=== PATIENT | female | born 1935 | race Caucasian/White ===

== ENCOUNTER 2017-05-13 14:31 | Inpatient (IN) | payer MEDICARE, MEDICAID ==
[~2017-05-13] VITALS: Ht 162.6 cm; Wt 53.6 kg
[~2017-05-13 14:31] MED LIST: ACET-1757 PO; ASPI-152; ASPI-496 PO; ATEN-104; ATOR20TA9 PO; BISA10SU54 PR; CARV12.543 PO; CARV6.2512 PO; CEFD300C37 PO; CHOL200040 PO; CITA20TA9 PO; DOCU-131 PO; DOCU240C53; FERR-46 PO; FERR325C PO; FURO-92 PO; GLIP5POW; HYDR-757; INSU100V SQ; LACT1CAP35 PO; LACT1CAP4 PO; LISI-167 PO; LISI-170 PO; MAGN400O7 PO; METF-162; MULT-658; MULT1CAP19 PO; PANT40TA3 PO; POLY17PO5 PO; POTA20TA14 PO; SUCR1TAB33 PO; SULF-169 PO
[2017-05-13] MEDS ORDERED: CARV3.1212 PO (14:54)
[2017-05-13] MEDS ORDERED: CHOL200040 PO (14:54)
[2017-05-13] MEDS ORDERED: GENT40VI IM (14:54)
[2017-05-13] MEDS ORDERED: SENN-31 PO (14:54)
[2017-05-13] MEDS ORDERED: MULT1TAB60 PO (14:54)
[2017-05-13] MEDS ORDERED: CITA10TA4 PO (14:54)
[2017-05-13] MEDS ORDERED: ATOR40TA PO (14:54)
[2017-05-13] MEDS ORDERED: TRAM50TA2 PO (14:54)
[2017-05-13] MEDS ORDERED: OMEP-110 PO (14:54)
[2017-05-13] MEDS ORDERED: PIPERACILLIN/TAZO/PMX 3.375GM 50 ML IVPB ONE (15:00)
[2017-05-13] MEDS ORDERED: SODIUM CHLORIDE 0.9% 1,000 ML IV ONE (15:00)
[2017-05-13] MEDS ORDERED: SODIUM CHLORIDE FLUSH 10ML SYR IVF ONE (15:00)
[2017-05-13 15:41] LABS: HEMATOCRIT 31.5 % (34.6-47.8); HEMOGLOBIN 10.4 g/dL (11.7-16.4); WHITE BLOOD COUNT 15.2 x10^3/uL (3.4-10)
[2017-05-13] MEDS ORDERED: PIPERACILLIN/TAZO/PMX 3.375GM 50 ML ONE (15:43)
[2017-05-13 15:45] LABS: ASPARTATE AMINO TRANSFERASE 14 U/L (15-37)
[2017-05-13] MEDS ORDERED: PLEASE ENTER HEIGHT AND WEIGHT MC SCH (16:00)
[2017-05-13] MEDS ORDERED: AZITHROMYCIN 500 MG in SODIUM CHLORIDE 0.9% 250 ML IVPB ONE (16:00)
[2017-05-13 16:03] LABS: BLOOD UREA NITROGEN 137 mg/dL (7-18)
[2017-05-13] MEDS ORDERED: DEXTROSE 50%, 50ML SYRINGE ONE (16:27)
[2017-05-13] MEDS ORDERED: CALCIUM CHLORIDE 10%, 10ML SYR ONE (16:27)
[2017-05-13] MEDS ORDERED: INSULIN REGULAR 100 UNITS/ML, 3ML VIAL ONE (16:28)
[2017-05-13] MEDS ORDERED: INSULIN REGULAR 100 UNITS/ML, 3ML VIAL IVPush ONE (16:30)
[2017-05-13] MEDS ORDERED: CALCIUM CHLORIDE 10%, 10ML SYR IVPush ONE (16:30)
[2017-05-13] MEDS ORDERED: SODIUM CHLORIDE FLUSH 10ML SYR IVF PRN (16:30)
[2017-05-13] MEDS ORDERED: DEXTROSE 50%, 50ML SYRINGE IVPush ONE (16:30)
[2017-05-13] MEDS ORDERED: SODIUM BICARBONATE 1 MEQ/ML, 50ML VIAL IVPush ONE (17:00)
[2017-05-13] MEDS ORDERED: SODIUM POLYSTYRENE SULFONATE ORAL SUSP PO ONE (17:00)
[2017-05-13] MEDS ORDERED: PHARMACY MAY ADJ FOR RENAL FX MC PRN (17:00)
[2017-05-13 17:10] LABS: PTH INTACT INTERPRETATION ** Comment **
[2017-05-13] MEDS ORDERED: ONDANSETRON 2MG/ML, 2ML IVPush PRN (17:30)
[2017-05-13] MEDS ORDERED: ONDANSETRON ODT 4 MG PO PRN (17:30)
[2017-05-13] MEDS: SODIUM BICARB 8.4%,50ML SYR. 150 MEQ in DEXTROSE 5% 1,000 ML IV SCH (17:49)
[2017-05-13 19:15] LABS: FERRITIN 673.7 ng/mL (8-252); TOTAL IRON BINDING CAPACITY 206 mcg/dL (250-450)
[2017-05-13 19:19] LABS: BLOOD UREA NITROGEN 134 mg/dL (7-18)
[2017-05-13 20:00] VITALS: BP 118/74
[2017-05-13] MEDS ORDERED: ATORVASTATIN 40 MG TABLET PO SCH (21:00)
[2017-05-13] MEDS: SENNA/DOCUSATE TABLET PO SCH (21:58)
[2017-05-13] MEDS: MEROPENEM 1 GM in SODIUM CHLORIDE 0.9% 100 ML IV SCH (22:07)
[2017-05-13] MEDS: HEPARIN 5,000 UNITS/ML, 1ML SQ SCH (22:07)
[2017-05-13] MEDS: CARVEDILOL 3.125 MG TABLET PO SCH (22:08)
[2017-05-13] MEDS: ATORVASTATIN 20 MG TABLET PO SCH (22:48)
[2017-05-14 04:20] VITALS: BP 147/71
[2017-05-14 05:34] LABS: HEMATOCRIT 29.5 % (34.6-47.8); HEMOGLOBIN 9.6 g/dL (11.7-16.4); WHITE BLOOD COUNT 9.9 x10^3/uL (3.4-10)
[2017-05-14] MEDS: HEPARIN 5,000 UNITS/ML, 1ML SQ SCH ×3 (05:45→23:43)
[2017-05-14] MEDS: SODIUM BICARB 8.4%,50ML SYR. 150 MEQ in DEXTROSE 5% 1,000 ML IV SCH (05:45)
[2017-05-14] MEDS: MEROPENEM 1 GM in SODIUM CHLORIDE 0.9% 100 ML IV SCH (05:45)
[2017-05-14 06:13] LABS: ASPARTATE AMINO TRANSFERASE 13 U/L (15-37)
[2017-05-14 06:18] LABS: BLOOD UREA NITROGEN 129 mg/dL (7-18)
[2017-05-14 08:02] VITALS: BP 155/71
[2017-05-14] MEDS: CITALOPRAM 10 MG TABLET PO SCH (09:00)
[2017-05-14] MEDS: CHOLECALCIFEROL 1,000 UNIT TABLET PO SCH ×2 (09:00→09:19)
[2017-05-14] MEDS: OMEPRAZOLE 20 MG CAPSULE.DR PO SCH ×2 (09:00→09:18)
[2017-05-14] MEDS: MULTIVITAMIN 1 TABLET PO SCH ×2 (09:00→09:19)
[2017-05-14] MEDS: CARVEDILOL 3.125 MG TABLET PO SCH ×3 (09:00→20:44)
[2017-05-14 13:22] VITALS: BP 146/57
[2017-05-14 15:31] LABS: HEP B SURF. AB 822.3 mIU/mL (0.0-10.0)
[2017-05-14] MEDS ORDERED: SODIUM BICARB 8.4%,50ML SYR. 150 MEQ in DEXTROSE 5% 1,000 ML IV SCH (17:30)
[2017-05-14 20:00] VITALS: BP 101/56
[2017-05-14] MEDS: ATORVASTATIN 20 MG TABLET PO SCH (20:44)
[2017-05-14] MEDS: SENNA/DOCUSATE TABLET PO SCH (20:45)
[2017-05-15 02:00] VITALS: BP 152/81
[2017-05-15 05:29] LABS: HEMATOCRIT 26.8 % (34.6-47.8); HEMOGLOBIN 9.1 g/dL (11.7-16.4); WHITE BLOOD COUNT 8.5 x10^3/uL (3.4-10)
[2017-05-15 05:37] LABS: BLOOD UREA NITROGEN 61 mg/dL (7-18)
[2017-05-15 05:40] LABS: ASPARTATE AMINO TRANSFERASE 16 U/L (15-37)
[2017-05-15] MEDS ORDERED: MEROPENEM 0.5 GM in SODIUM CHLORIDE 0.9% 100 ML IV SCH (06:00)
[2017-05-15 07:03] VITALS: BP 147/73
[2017-05-15] MEDS: HEPARIN 5,000 UNITS/ML, 1ML SQ SCH ×3 (07:21→23:50)
[2017-05-15] MEDS: OMEPRAZOLE 20 MG CAPSULE.DR PO SCH (08:08)
[2017-05-15] MEDS: MULTIVITAMIN 1 TABLET PO SCH (08:08)
[2017-05-15] MEDS: CARVEDILOL 3.125 MG TABLET PO SCH ×2 (08:08→20:09)
[2017-05-15] MEDS: CHOLECALCIFEROL 1,000 UNIT TABLET PO SCH (08:08)
[2017-05-15] MEDS: CITALOPRAM 10 MG TABLET PO SCH (08:08)
[2017-05-15 13:31] LABS: POTASSIUM,URINE RANDOM 19 mmol/L
[2017-05-15 13:58] VITALS: BP 130/73
[2017-05-15 20:00] VITALS: BP 153/75
[2017-05-15] MEDS: SENNA/DOCUSATE TABLET PO SCH (20:09)
[2017-05-15] MEDS: ATORVASTATIN 20 MG TABLET PO SCH (20:09)
[2017-05-16 02:00] VITALS: BP 119/76
[2017-05-16 05:15] LABS: HEMATOCRIT 26.8 % (34.6-47.8); HEMOGLOBIN 8.9 g/dL (11.7-16.4); WHITE BLOOD COUNT 9.2 x10^3/uL (3.4-10)
[2017-05-16] MEDS: MEROPENEM 500 MG in SODIUM CHLORIDE 0.9% 100 ML IV SCH (05:23)
[2017-05-16 05:33] LABS: ASPARTATE AMINO TRANSFERASE 25 U/L (15-37); BLOOD UREA NITROGEN 30 mg/dL (7-18)
[2017-05-16 09:00] VITALS: BP 122/55
[2017-05-16] MEDS: CARVEDILOL 3.125 MG TABLET PO SCH ×2 (09:00→21:26)
[2017-05-16] MEDS: CHOLECALCIFEROL 1,000 UNIT TABLET PO SCH (12:07)
[2017-05-16] MEDS: HEPARIN 5,000 UNITS/ML, 1ML SQ SCH ×2 (12:07→18:05)
[2017-05-16] MEDS: MULTIVITAMIN 1 TABLET PO SCH (12:07)
[2017-05-16] MEDS: OMEPRAZOLE 20 MG CAPSULE.DR PO SCH (12:07)
[2017-05-16] MEDS: CITALOPRAM 10 MG TABLET PO SCH (12:07)
[2017-05-16 12:15] VITALS: BP 154/78
[2017-05-16 17:13] LABS: BLOOD UREA NITROGEN 12 mg/dL (7-18)
[2017-05-16 21:03] VITALS: BP 153/77
[2017-05-16] MEDS: SENNA/DOCUSATE TABLET PO SCH (21:26)
[2017-05-16] MEDS: ATORVASTATIN 20 MG TABLET PO SCH (21:26)
[2017-05-17] MEDS: HEPARIN 5,000 UNITS/ML, 1ML SQ SCH ×3 (01:41→20:48)
[2017-05-17 02:43] VITALS: BP 140/67
[2017-05-17 05:20] LABS: HEMATOCRIT 25.1 % (34.6-47.8); HEMOGLOBIN 8.3 g/dL (11.7-16.4); WHITE BLOOD COUNT 8.8 x10^3/uL (3.4-10)
[2017-05-17] MEDS: MEROPENEM 500 MG in SODIUM CHLORIDE 0.9% 100 ML IV SCH (05:29)
[2017-05-17 05:40] LABS: BLOOD UREA NITROGEN 19 mg/dL (7-18)
[2017-05-17 06:40] VITALS: BP 155/78
[2017-05-17] MEDS: OMEPRAZOLE 20 MG CAPSULE.DR PO SCH (09:00)
[2017-05-17] MEDS: MULTIVITAMIN 1 TABLET PO SCH (09:00)
[2017-05-17] MEDS: CHOLECALCIFEROL 1,000 UNIT TABLET PO SCH (09:00)
[2017-05-17] MEDS: CARVEDILOL 3.125 MG TABLET PO SCH ×2 (09:00→20:48)
[2017-05-17] MEDS: CITALOPRAM 10 MG TABLET PO SCH (09:00)
[2017-05-17] MEDS ORDERED: POTASSIUM CHLORIDE PMX 100 ML IV ONE (11:00)
[2017-05-17] MEDS ORDERED: ONDANSETRON 2MG/ML, 2ML ONE (12:56)
[2017-05-17] MEDS ORDERED: FENTANYL PF 100 MCG/2ML ONE ×2 (12:56)
[2017-05-17] MEDS ORDERED: LIDOCAINE 1%, 20ML ONE (13:32)
[2017-05-17 14:00] VITALS: BP 138/69
[2017-05-17] MEDS: SENNA/DOCUSATE TABLET PO SCH (20:48)
[2017-05-17] MEDS: ATORVASTATIN 20 MG TABLET PO SCH (20:48)
[2017-05-17 22:14] VITALS: BP 185/74
[2017-05-18 00:26] VITALS: BP 165/79
[2017-05-18 05:13] LABS: BLOOD UREA NITROGEN 29 mg/dL (7-18)
[2017-05-18 05:18] LABS: HEMATOCRIT 27.7 % (34.6-47.8); WHITE BLOOD COUNT 10.3 x10^3/uL (3.4-10)
[2017-05-18] MEDS: MEROPENEM 500 MG in SODIUM CHLORIDE 0.9% 100 ML IV SCH (05:52)
[2017-05-18] MEDS: HEPARIN 5,000 UNITS/ML, 1ML SQ SCH ×3 (05:52→23:02)
[2017-05-18 08:28] VITALS: BP 186/96
[2017-05-18] MEDS: MULTIVITAMIN 1 TABLET PO SCH ×2 (09:00→12:33)
[2017-05-18] MEDS: CARVEDILOL 3.125 MG TABLET PO SCH ×2 (12:33→23:05)
[2017-05-18] MEDS: OMEPRAZOLE 20 MG CAPSULE.DR PO SCH (12:33)
[2017-05-18] MEDS: CITALOPRAM 10 MG TABLET PO SCH (12:33)
[2017-05-18] MEDS: CHOLECALCIFEROL 1,000 UNIT TABLET PO SCH (12:34)
[2017-05-18 13:06] VITALS: BP 183/79
[2017-05-18] MEDS ORDERED: ACETAMINOPHEN 325 MG TABLET PO PRN (15:00)
[2017-05-18 21:25] VITALS: BP 194/84
[2017-05-18] MEDS: SENNA/DOCUSATE TABLET PO SCH (23:02)
[2017-05-18] MEDS: ATORVASTATIN 20 MG TABLET PO SCH (23:02)
[2017-05-19 03:44] VITALS: BP 179/78
[2017-05-19] MEDS: MEROPENEM 500 MG in SODIUM CHLORIDE 0.9% 100 ML IV SCH (06:03)
[2017-05-19] MEDS: HEPARIN 5,000 UNITS/ML, 1ML SQ SCH (06:06)
[2017-05-19 07:02] LABS: BLOOD UREA NITROGEN 32 mg/dL (7-18)
[2017-05-19 07:52] VITALS: BP 158/71
[2017-05-19] MEDS: CHOLECALCIFEROL 1,000 UNIT TABLET PO SCH (09:00)
[2017-05-19] MEDS ORDERED: ENOXAPARIN 60 MG/0.6 ML SQ SCH (09:00)
[2017-05-19] MEDS: CITALOPRAM 10 MG TABLET PO SCH (10:27)
[2017-05-19] MEDS: MULTIVITAMIN 1 TABLET PO SCH (10:27)
[2017-05-19] MEDS: OMEPRAZOLE 20 MG CAPSULE.DR PO SCH (10:27)
[2017-05-19] MEDS: CARVEDILOL 3.125 MG TABLET PO SCH ×2 (10:27→22:11)
[2017-05-19] MEDS: POTASSIUM CHLORIDE 20 MEQ PACKET PO SCH ×2 (10:30→17:00)
[2017-05-19] MEDS ORDERED: MAGNESIUM SULFATE PMX 2GM/50ML 50 ML IV ONE (10:30)
[2017-05-19 13:34] VITALS: BP 137/76
[2017-05-19] MEDS ORDERED: ACETAMINOPHEN 325 MG TABLET PO PRN (19:30)
[2017-05-19] MEDS ORDERED: ONDANSETRON ODT 4 MG PO PRN ×2 (19:30→21:00)
[2017-05-19] MEDS ORDERED: PHARMACY MAY ADJ FOR RENAL FX MC PRN ×2 (19:30→21:00)
[2017-05-19] MEDS ORDERED: ONDANSETRON 2MG/ML, 2ML IVPush PRN ×2 (19:30→21:00)
[2017-05-19 20:00] VITALS: BP 152/75
[2017-05-19] MEDS: SENNA/DOCUSATE TABLET PO SCH (22:11)
[2017-05-19] MEDS: ATORVASTATIN 20 MG TABLET PO SCH (22:11)
[2017-05-19] MEDS: APIXABAN 2.5 MG TABLET PO SCH (22:11)
[2017-05-20 02:00] VITALS: BP 156/80
[2017-05-20] MEDS: MEROPENEM 500 MG in SODIUM CHLORIDE 0.9% 100 ML IV SCH (05:35)
[2017-05-20 05:45] LABS: BLOOD UREA NITROGEN 31 mg/dL (7-18)
[2017-05-20 08:42] VITALS: BP 177/77
[2017-05-20] MEDS: MULTIVITAMIN 1 TABLET PO SCH (09:17)
[2017-05-20] MEDS: CARVEDILOL 3.125 MG TABLET PO SCH ×2 (09:18→20:55)
[2017-05-20] MEDS: APIXABAN 2.5 MG TABLET PO SCH ×2 (09:18→20:56)
[2017-05-20] MEDS: CHOLECALCIFEROL 1,000 UNIT TABLET PO SCH (09:18)
[2017-05-20] MEDS: OMEPRAZOLE 20 MG CAPSULE.DR PO SCH (09:19)
[2017-05-20] MEDS: CITALOPRAM 10 MG TABLET PO SCH (09:19)
[2017-05-20] MEDS: POTASSIUM CHLORIDE 20 MEQ PACKET PO SCH ×2 (09:19→17:34)
[2017-05-20 15:29] VITALS: BP 153/82
[2017-05-20 20:00] VITALS: BP 123/55
[2017-05-20] MEDS: SENNA/DOCUSATE TABLET PO SCH (20:56)
[2017-05-20] MEDS: ATORVASTATIN 20 MG TABLET PO SCH (20:56)
[2017-05-21] MEDS: ACETAMINOPHEN 325 MG TABLET PO PRN (00:26)
[2017-05-21 02:00] VITALS: BP 155/75
[2017-05-21 05:14] LABS: BLOOD UREA NITROGEN 31 mg/dL (7-18); HEMATOCRIT 23.1 % (34.6-47.8); HEMOGLOBIN 7.7 g/dL (11.7-16.4)
[2017-05-21 05:19] LABS: ASPARTATE AMINO TRANSFERASE 10 U/L (15-37)
[2017-05-21] MEDS: MEROPENEM 500 MG in SODIUM CHLORIDE 0.9% 100 ML IV SCH (06:14)
[2017-05-21 06:35] VITALS: BP 137/72
[2017-05-21] MEDS: CITALOPRAM 10 MG TABLET PO SCH (09:14)
[2017-05-21] MEDS: POTASSIUM CHLORIDE 20 MEQ PACKET PO SCH ×2 (09:14→20:39)
[2017-05-21] MEDS: APIXABAN 2.5 MG TABLET PO SCH ×2 (09:15→20:39)
[2017-05-21] MEDS: OMEPRAZOLE 20 MG CAPSULE.DR PO SCH (09:15)
[2017-05-21] MEDS: CARVEDILOL 3.125 MG TABLET PO SCH ×2 (09:15→20:39)
[2017-05-21] MEDS: CHOLECALCIFEROL 1,000 UNIT TABLET PO SCH (09:15)
[2017-05-21] MEDS: MULTIVITAMIN 1 TABLET PO SCH (09:15)
[2017-05-21 12:39] VITALS: BP 156/67
[2017-05-21 13:08] LABS: PPD INJECT PLACED
[2017-05-21 20:00] VITALS: BP 150/69
[2017-05-21] MEDS: ATORVASTATIN 20 MG TABLET PO SCH (20:39)
[2017-05-21] MEDS: SENNA/DOCUSATE TABLET PO SCH (21:00)
[2017-05-22 02:00] VITALS: BP 152/73
[2017-05-22] MEDS: MEROPENEM 500 MG in SODIUM CHLORIDE 0.9% 100 ML IV SCH (05:41)
[2017-05-22 05:57] LABS: HEMATOCRIT 24.3 % (34.6-47.8); WHITE BLOOD COUNT 7.1 x10^3/uL (3.4-10)
[2017-05-22 06:23] LABS: BLOOD UREA NITROGEN 32 mg/dL (7-18)
[2017-05-22 06:53] VITALS: BP 157/73
[2017-05-22] MEDS: POTASSIUM CHLORIDE 20 MEQ PACKET PO SCH ×3 (09:13→21:45)
[2017-05-22] MEDS: CARVEDILOL 3.125 MG TABLET PO SCH ×2 (09:14→21:45)
[2017-05-22] MEDS: MULTIVITAMIN 1 TABLET PO SCH (09:14)
[2017-05-22] MEDS: CHOLECALCIFEROL 1,000 UNIT TABLET PO SCH (09:15)
[2017-05-22] MEDS: OMEPRAZOLE 20 MG CAPSULE.DR PO SCH (09:15)
[2017-05-22] MEDS: APIXABAN 2.5 MG TABLET PO SCH ×2 (09:15→21:45)
[2017-05-22] MEDS: CITALOPRAM 10 MG TABLET PO SCH (09:15)
[2017-05-22 14:27] VITALS: BP 147/87
[2017-05-22 20:47] VITALS: BP 138/99
[2017-05-22] MEDS: SENNA/DOCUSATE TABLET PO SCH (21:45)
[2017-05-22] MEDS: ATORVASTATIN 20 MG TABLET PO SCH (21:45)
[2017-05-23 00:55] VITALS: BP 159/75
[2017-05-23 06:27] LABS: HEMATOCRIT 23.7 % (34.6-47.8); HEMOGLOBIN 7.7 g/dL (11.7-16.4); WHITE BLOOD COUNT 6.2 x10^3/uL (3.4-10)
[2017-05-23] MEDS: MEROPENEM 500 MG in SODIUM CHLORIDE 0.9% 100 ML IV SCH (06:27)
[2017-05-23 06:54] LABS: BLOOD UREA NITROGEN 29 mg/dL (7-18)
[2017-05-23 06:57] VITALS: BP 152/78
[2017-05-23] MEDS: POTASSIUM CHLORIDE 20 MEQ PACKET PO SCH ×3 (08:00→15:35)
[2017-05-23] MEDS: CHOLECALCIFEROL 1,000 UNIT TABLET PO SCH (09:05)
[2017-05-23] MEDS: OMEPRAZOLE 20 MG CAPSULE.DR PO SCH (09:05)
[2017-05-23] MEDS: MULTIVITAMIN 1 TABLET PO SCH (09:05)
[2017-05-23] MEDS: APIXABAN 2.5 MG TABLET PO SCH ×2 (09:05→22:17)
[2017-05-23] MEDS: CITALOPRAM 10 MG TABLET PO SCH (09:06)
[2017-05-23] MEDS: CARVEDILOL 3.125 MG TABLET PO SCH ×2 (09:06→22:17)
[2017-05-23] MEDS: SODIUM BICARBONATE 650 MG TABLET PO SCH ×2 (10:54→22:17)
[2017-05-23 13:12] VITALS: BP 156/81
[2017-05-23 14:10] LABS: TUBERCULIN 48 HOUR READ 0 mm (< 5)
[2017-05-23] MEDS ORDERED: BISACODYL 10 MG SUPP PR PRN (15:30)
[2017-05-23] MEDS ORDERED: POLYETHYLENE GLYCOL 17 GM PACKET PO PRN (15:30)
[2017-05-23 20:56] VITALS: BP 123/69
[2017-05-23] MEDS: SENNA/DOCUSATE TABLET PO SCH (22:17)
[2017-05-23] MEDS: ATORVASTATIN 20 MG TABLET PO SCH (22:17)
[2017-05-23 22:18] VITALS: BP 165/80
[2017-05-24 00:14] VITALS: BP 131/68
[2017-05-24 05:47] LABS: HEMATOCRIT 23.9 % (34.6-47.8); HEMOGLOBIN 7.9 g/dL (11.7-16.4); WHITE BLOOD COUNT 7.2 x10^3/uL (3.4-10)
[2017-05-24 06:18] LABS: BLOOD UREA NITROGEN 27 mg/dL (7-18)
[2017-05-24] MEDS: MEROPENEM 500 MG in SODIUM CHLORIDE 0.9% 100 ML IV SCH (06:19)
[2017-05-24] MEDS: POTASSIUM CHLORIDE 20 MEQ PACKET PO SCH (08:00)
[2017-05-24 08:10] VITALS: BP 138/73
[2017-05-24] MEDS: CITALOPRAM 10 MG TABLET PO SCH (09:00)
[2017-05-24] MEDS: APIXABAN 2.5 MG TABLET PO SCH (09:00)
[2017-05-24] MEDS: OMEPRAZOLE 20 MG CAPSULE.DR PO SCH (09:00)
[2017-05-24] MEDS: SODIUM BICARBONATE 650 MG TABLET PO SCH (09:00)
[2017-05-24] MEDS: MULTIVITAMIN 1 TABLET PO SCH (09:00)
[2017-05-24] MEDS: CHOLECALCIFEROL 1,000 UNIT TABLET PO SCH (09:00)
[2017-05-24] MEDS: CARVEDILOL 3.125 MG TABLET PO SCH (09:00)
[2017-05-24] MEDS ORDERED: APIX2.5T PO (11:51)
[2017-05-24] MEDS ORDERED: MERO500P IV (11:51)
[2017-05-24] MEDS ORDERED: SODI650T PO (11:51)
[2017-05-24 12:13] LABS: TUBERCULIN 72 HOUR READ 0 mm (< 5)
[2017-05-24 14:39] VITALS: BP 135/70
[2017-05-24] MEDS: ACETAMINOPHEN 325 MG TABLET PO PRN (16:35)
== END 2017-05-24 16:48 | DRG 871 ==
LOC: ED 16:20 → EDIP 16:23 → ED 16:27 → 4EST 18:06
PROVIDERS: ADMIT Hospitalist; ATTEND Internal Medicine
PROC: 0T9B70Z Drainage of Bladder with Drainage Device, Via Natural or Artificial Opening (ICD-10-PCS; 2017-05-13)
PROC: 5A1D70Z Performance of Urinary Filtration, Intermittent, Less than 6 Hours Per Day (ICD-10-PCS; principal; 2017-05-14)
PROC: 02HV33Z Insertion of Infusion Device into Superior Vena Cava, Percutaneous Approach (ICD-10-PCS; 2017-05-14)
PROC: B548ZZA Ultrasonography of Superior Vena Cava, Guidance (ICD-10-PCS; 2017-05-14)
PROC: B5181ZA Fluoroscopy of Superior Vena Cava using Low Osmolar Contrast, Guidance (ICD-10-PCS; 2017-05-14)
PROC: 5A1D70Z Performance of Urinary Filtration, Intermittent, Less than 6 Hours Per Day (ICD-10-PCS; 2017-05-15)
PROC: 5A1D70Z Performance of Urinary Filtration, Intermittent, Less than 6 Hours Per Day (ICD-10-PCS; 2017-05-16)
PROC: 02HV33Z Insertion of Infusion Device into Superior Vena Cava, Percutaneous Approach (ICD-10-PCS; 2017-05-17)
PROC: B548ZZA Ultrasonography of Superior Vena Cava, Guidance (ICD-10-PCS; 2017-05-17)
PROC: B5181ZA Fluoroscopy of Superior Vena Cava using Low Osmolar Contrast, Guidance (ICD-10-PCS; 2017-05-17)
PROC: 0JH63XZ Insertion of Tunneled Vascular Access Device into Chest Subcutaneous Tissue and Fascia, Percutaneous Approach (ICD-10-PCS; 2017-05-17)
DX: A41.9 Sepsis, unspecified organism (principal); G93.41 Metabolic encephalopathy; N17.0 Acute kidney failure with tubular necrosis; E43 Unspecified severe protein-calorie malnutrition; J15.0 Pneumonia due to Klebsiella pneumoniae; I13.2 Hypertensive heart and chronic kidney disease with heart failure and with stage 5 chronic kidney disease, or end stage renal disease; E11.21 Type 2 diabetes mellitus with diabetic nephropathy; E83.42 Hypomagnesemia; I27.20 Pulmonary hypertension, unspecified; I82.409 Acute embolism and thrombosis of unspecified deep veins of unspecified lower extremity; N18.6 End stage renal disease; E87.2 Acidosis; E87.1 Hypo-osmolality and hyponatremia; I50.32 Chronic diastolic (congestive) heart failure; I82.502 Chronic embolism and thrombosis of unspecified deep veins of left lower extremity; I82.629 Acute embolism and thrombosis of deep veins of unspecified upper extremity; N30.00 Acute cystitis without hematuria; I82.509 Chronic embolism and thrombosis of unspecified deep veins of unspecified lower extremity; E11.51 Type 2 diabetes mellitus with diabetic peripheral angiopathy without gangrene; E87.5 Hyperkalemia; D63.8 Anemia in other chronic diseases classified elsewhere; B96.4 Proteus (mirabilis) (morganii) as the cause of diseases classified elsewhere; B96.20 Unspecified Escherichia coli [E. coli] as the cause of diseases classified elsewhere; Z66 Do not resuscitate; E11.22 Type 2 diabetes mellitus with diabetic chronic kidney disease; E86.9 Volume depletion, unspecified; E87.6 Hypokalemia; I25.10 Atherosclerotic heart disease of native coronary artery without angina pectoris; I34.0 Nonrheumatic mitral (valve) insufficiency; R19.7 Diarrhea, unspecified; B96.5 Pseudomonas (aeruginosa) (mallei) (pseudomallei) as the cause of diseases classified elsewhere; I69.320 Aphasia following cerebral infarction; I69.398 Other sequelae of cerebral infarction; Z59.0 Homelessness; Z74.01 Bed confinement status; Z79.4 Long term (current) use of insulin; Z87.442 Personal history of urinary calculi; Z89.511 Acquired absence of right leg below knee; Z99.2 Dependence on renal dialysis; Z87.440 Personal history of urinary (tract) infections; Z68.20 Body mass index [BMI] 20.0-20.9, adult; Z88.6 Allergy status to analgesic agent; D63.1 Anemia in chronic kidney disease
CPT/HCPCS: 36415; 36558; 36569; 70450; 71010; 76937; 77001; 80048; 80053; 80069; 81001; 82140; 82306; 82310; 82436; 82728; 83036; 83540; 83550; 83605; 83735; 83935; 83970; 84100; 84132; 84133; 84145; 84300; 84550; 85025; 85610; 85730; 86480; 86580; 86704; 86706; 87040; 87077; 87086; 87186; 87205; 87324; 87340; 93005; 96365; 96375; C1894; J0456; J1644; J2185; J2405; J2543; J3010; J3480; J3490; J7070; C1750; C1751; C1769; J1642; J3475; J7030; J7050

== ENCOUNTER → 2018-02-27 | Day surgery (SDC) | payer MEDICARE, MEDICAID ==
[~2018-02-27] VITALS: Ht 152.4 cm; Wt 42.4 kg
[~2018-02-27] MED LIST changes: +APIX2.5T PO; +ATOR40TA PO; +CARV3.1212 PO; +CITA10TA4 PO; +GENT40VI IM; +MERO500P IV; +MULT1TAB60 PO; +OMEP-110 PO; +SENN-31 PO; +SODI650T PO; +TRAM50TA2 PO
[2018-02-27 08:53] VITALS: BP 106/55
== END ==
LOC: OUT 06:59
PROVIDERS: ATTEND Internal Medicine Geriatric Medicine
DX: Z02.9 Encounter for administrative examinations, unspecified (principal)